=== PATIENT | male | born 1975 | race Caucasian/White ===

== ENCOUNTER 2017-08-29 13:35 | Day surgery (SDC) | payer BC ==
[2017-08-29] MEDS ORDERED: PROPOFOL 40 ML (16:12)
== END 2017-08-29 17:20 | disposition home or self-care (01) ==
LOC: GIL 13:35
DX: K29.50 Unspecified chronic gastritis without bleeding (principal); K21.0 Gastro-esophageal reflux disease with esophagitis; I10 Essential (primary) hypertension; E78.5 Hyperlipidemia, unspecified
CPT/HCPCS: 43239; 88305; 88312; 88313